=== PATIENT | male | born 1945 | race Caucasian/White ===

== ENCOUNTER 2020-12-10 20:02 | Inpatient (IN) ==
[2020-12-10] MEDS ORDERED: SODIUM CHLORIDE 0.9% 1,000 ML IV STA ×2 (20:36→21:38)
[2020-12-10 20:50] LABS: Basophils # 0.1 10*3/uL (0.0-0.2); Basophils % 0.6 % (0.0-0.8); Eosinophils # 0.1 10*3/uL (0.0-0.87); Eosinophils % 0.4 % (0.00-10.9); Hematocrit 44.9 VOL% (42.0-52.0); Hemoglobin 15.5 GM/DL (14.0-18.0); Immature Granulocytes % 3.9 %; Immature Granulocytes Absolute 0.76 #; Lymphocytes # 0.2 10*3/uL (1.4-4.0); Lymphocytes % 1.2 % (21.2-54.2); Mean Corpuscular HGB Conc 34.5 GM/DL (32-36); Mean Corpuscular Volume 87.7 FL (87-102); Monocytes % 3.6 % (1.7-12.7); Neutrophils % 90.3 % (38.7-73.9); Platelet Count 157 T/CUMM (130-400); Red Blood Count 5.12 MC/CUMM (3.8-5.5); Red Cell Distribution Width 12.1 % (9.3-17.3); White Blood Count 19.3 T/CUMM (4-12)
[2020-12-10] MEDS ORDERED: cefTRIAXone 1,000 MG in SODIUM CHLORIDE 0.9% 100 ML IV STA (21:01)
[2020-12-10 21:02] LABS: Alanine Aminotransferase 18 U/L (16-61); Albumin 1.5 G/DL (3.4-5.0); Alkaline Phosphatase 171 U/L (45-117); Aspartate Amino Transferase 22 U/L (0-37); Blood Urea Nitrogen 52 MG/DL (7-18); Calcium 8.5 MG/DL (8.5-10.1); Estimated Glom Filtration Rate 51 ML/MIN; Glucose 415 MG/DL (74-106); Osmolality,Calculated 295.5 MOS/KG (273-304); Total Protein 6.1 G/DL (6.4-8.3)
[2020-12-10 21:03] LABS: Troponin I 0.117 NG/ML (0.00-0.045)
[2020-12-10 21:05] LABS: Thyroid Stimulating Hormone 0.371 uIU/ml (0.358-3.74)
[2020-12-10 21:13] LABS: INR 1.2; PT Patient Result 12.7 SECS (9.8-11.9); Partial Thromboplastin Time 27.6 SECS (23.9-33.8)
[2020-12-10 21:30] LABS: Band Neutrophils 16 % (0-10); Lymphocytes 1 % (20-55); Segmented Neutrophils 81 % (50-85); Total Cells Counted 100
[2020-12-10 21:31] LABS: Platelet Estimate Adequate
[2020-12-10] MEDS ORDERED: INSULIN REGULAR 100 UNIT/ML IV STA (21:38)
[2020-12-10] MEDS ORDERED: DILTIAZEM 50 MG/10 ML VIAL IV STA (22:58)
[2020-12-10 23:25] LABS: Bacteria,Urine Many /HPF (Few); Bilirubin,Urine Negative (Negative); Blood, Urine Large mg/dL (Negative); Glucose,Urine (UA) >=500 mg/dL (Negative); Hyaline Casts,Urine 3 /LPF (0-3); Ketones,Urine 5 mg/dL (Negative); Mucus,Urine Occasional /LPF (Occasional); Nitrite,Urine Negative (Negative); Protein,Urine Negative; RBC,Urine 10 /HPF (0-4); Squamous Epithelial Cell,Urine Occasional /HPF (0-10); Urine Appearance Slightly Hazy (Clear); Urine Color Yellow (Yellow); Urine Specific Gravity 1.018 (1.001-1.035); Urine Urobilinogen < 2.0 EU/DL (0.2-1.0)
[2020-12-10 23:44] LABS: Barbiturates Screen,Urine Negative (Negative); Benzodiazepines Screen,Urine Negative (Negative); Cannabinoid Screen,Urine Negative (Negative); Opiate Screen,Urine Negative (Negative); Phencyclidine Screen,Urine Negative (Negative)
[2020-12-11] MEDS ORDERED: ONDANSETRON 4 MG/2 ML VIAL IV PRN (02:07)
[2020-12-11] MEDS ORDERED: GLUCAGON 1 MG VIAL IM PRN ×2 (02:07)
[2020-12-11] MEDS ORDERED: DEXTROSE 50% 25 GM/50 ML VIAL IV PRN ×2 (02:07)
[2020-12-11] MEDS ORDERED: ACETAMINOPHEN 325 MG TABLET PO PRN (02:07)
[2020-12-11] MEDS ORDERED: SODIUM CHLORIDE 0.9% 1,000 ML IV SCH (02:30)
[2020-12-11] MEDS: SODIUM CHLORIDE 0.9% 1,000 ML IV SCH ×3 (02:30→22:42)
[2020-12-11] MEDS: PIPERACILLIN/TAZOBACTAM 3,375 MG in SODIUM CHLORIDE 0.9% 100 ML IV SCH ×3 (02:40→17:55)
[2020-12-11] MEDS: dilTIAZem Drip 125 MG/125 ML PREMIX IV SCH ×3 (02:55→22:05)
[2020-12-11] MEDS: INSULIN REGULAR 100 UNIT/ML SUBCUT SCH ×5 (04:22→21:15)
[2020-12-11] MEDS: ENOXAPARIN 80 MG/0.8 ML SYRINGE SUBCUT SCH ×2 (05:55→17:55)
[2020-12-11 07:58] LABS: Basophils # 0.1 10*3/uL (0.0-0.2); Basophils % 0.4 % (0.0-0.8); Eosinophils # 0.1 10*3/uL (0.0-0.87); Eosinophils % 0.4 % (0.00-10.9); Hematocrit 38.5 VOL% (42.0-52.0); Immature Granulocytes % 4.4 %; Lymphocytes # 0.4 10*3/uL (1.4-4.0); Lymphocytes % 1.8 % (21.2-54.2); Mean Corpuscular HGB Conc 35.1 GM/DL (32-36); Mean Corpuscular Volume 86.9 FL (87-102); Mean Platelet Volume 11.8 FL (9.6-12.0); Monocytes % 5.1 % (1.7-12.7); Neutrophils % 87.9 % (38.7-73.9); Red Blood Count 4.43 MC/CUMM (3.8-5.5); Red Cell Distribution Width 12.3 % (9.3-17.3); White Blood Count 22.5 T/CUMM (4-12)
[2020-12-11 07:59] LABS: Hemoglobin 13.5 GM/DL (14.0-18.0); Platelet Count 122 T/CUMM (130-400)
[2020-12-11 08:21] LABS: Band Neutrophils 3 % (0-10); Lymphocytes 1 % (20-55); Segmented Neutrophils 90 % (50-85); Total Cells Counted 100
[2020-12-11 08:25] LABS: Albumin 1.3 G/DL (3.4-5.0); Bilirubin,Total 0.7 MG/DL (0.2-1.0); Calcium 8.3 MG/DL (8.5-10.1); Osmolality,Calculated 295.8 MOS/KG (273-304); Total Protein 5.3 G/DL (6.4-8.3)
[2020-12-11] MEDS: ASPIRIN EC 81 MG TABLET PO SCH (09:25)
[2020-12-11] MEDS: VANCOMYCIN INJ 1,000 MG in SODIUM CHLORIDE 0.9% 250 ML IV SCH ×2 (09:25→21:40)
[2020-12-11] MEDS: METOPROLOL TARTRATE 25 MG TABLET PO SCH ×2 (09:25→21:50)
[2020-12-11] MEDS: PANTOPRAZOLE 40 MG TABLET PO SCH (09:25)
[2020-12-11] MEDS: ASCORBIC ACID 500 MG TABLET PO SCH ×2 (11:10→21:50)
[2020-12-12] MEDS: SODIUM CHLORIDE 0.9% 1,000 ML IV SCH ×3 (02:34→23:24)
[2020-12-12] MEDS: PIPERACILLIN/TAZOBACTAM 3,375 MG in SODIUM CHLORIDE 0.9% 100 ML IV SCH ×2 (02:35→10:43)
[2020-12-12 04:46] LABS: Basophils # 0.1 10*3/uL (0.0-0.2); Basophils % 0.2 % (0.0-0.8); Eosinophils % 0.1 % (0.00-10.9); Hematocrit 35.6 VOL% (42.0-52.0); Hemoglobin 12.1 GM/DL (14.0-18.0); Immature Granulocytes % 1.4 %; Immature Granulocytes Absolute 0.29 #; Lymphocytes % 4.7 % (21.2-54.2); Mean Corpuscular Volume 89.2 FL (87-102); Mean Platelet Volume 12.7 FL (9.6-12.0); Monocytes % 6.8 % (1.7-12.7); Neutrophils % 86.8 % (38.7-73.9); Platelet Count 102 T/CUMM (130-400); Red Blood Count 3.99 MC/CUMM (3.8-5.5); Red Cell Distribution Width 12.7 % (9.3-17.3); White Blood Count 20.2 T/CUMM (4-12)
[2020-12-12 05:09] LABS: Band Neutrophils 1 % (0-10); Hypochromasia 1+; Lymphocytes 5 % (20-55); Microcytosis 1+; Ovalocytes Slight; Platelet Estimate Decreased; Segmented Neutrophils 90 % (50-85); Total Cells Counted 100
[2020-12-12 05:12] LABS: Calcium 8.3 MG/DL (8.5-10.1); Osmolality,Calculated 312.8 MOS/KG (273-304)
[2020-12-12] MEDS: ENOXAPARIN 80 MG/0.8 ML SYRINGE SUBCUT SCH ×2 (06:39→17:40)
[2020-12-12] MEDS: ASPIRIN EC 81 MG TABLET PO SCH (09:17)
[2020-12-12] MEDS: ASCORBIC ACID 500 MG TABLET PO SCH ×2 (09:36→20:46)
[2020-12-12] MEDS: PANTOPRAZOLE 40 MG TABLET PO SCH (09:36)
[2020-12-12] MEDS: VANCOMYCIN INJ 1,000 MG in SODIUM CHLORIDE 0.9% 250 ML IV SCH (09:36)
[2020-12-12] MEDS: METOPROLOL TARTRATE 50 MG TABLET PO SCH ×2 (09:36→20:46)
[2020-12-12] MEDS: INSULIN REGULAR 100 UNIT/ML SUBCUT SCH ×5 (09:36→23:27)
[2020-12-12] MEDS ORDERED: ceFAZolin 2,000 MG in PREMIX 1 EACH IV SCH (12:30)
[2020-12-12] MEDS: ceFAZolin 2,000 MG in PREMIX 1 EACH IV SCH ×2 (14:47→20:51)
[2020-12-12] MEDS: INSULIN GLARGINE 100 UNIT/ML SUBCUT SCH (20:47)
[2020-12-13] MEDS: dilTIAZem Drip 125 MG/125 ML PREMIX IV SCH (05:29)
[2020-12-13] MEDS: ceFAZolin 2,000 MG in PREMIX 1 EACH IV SCH ×3 (06:12→21:53)
[2020-12-13 06:45] LABS: Basophils # 0.1 10*3/uL (0.0-0.2); Basophils % 0.3 % (0.0-0.8); Hematocrit 36.1 VOL% (42.0-52.0); Hemoglobin 12.1 GM/DL (14.0-18.0); Immature Granulocytes % 2.7 %; Immature Granulocytes Absolute 0.47 #; Lymphocytes # 1.1 10*3/uL (1.4-4.0); Lymphocytes % 6.5 % (21.2-54.2); Mean Corpuscular HGB Conc 33.5 GM/DL (32-36); Mean Corpuscular Volume 90.7 FL (87-102); Mean Platelet Volume 13.5 FL (9.6-12.0); Monocytes % 5.2 % (1.7-12.7); Neutrophils % 85.3 % (38.7-73.9); Platelet Count 78 T/CUMM (130-400); Red Blood Count 3.98 MC/CUMM (3.8-5.5); Red Cell Distribution Width 12.9 % (9.3-17.3); White Blood Count 17.5 T/CUMM (4-12)
[2020-12-13] MEDS: ENOXAPARIN 80 MG/0.8 ML SYRINGE SUBCUT SCH (06:46)
[2020-12-13] MEDS: SODIUM CHLORIDE 0.9% 1,000 ML IV SCH ×4 (06:47→19:43)
[2020-12-13 06:59] LABS: Calcium 7.9 MG/DL (8.5-10.1); Osmolality,Calculated 310.7 MOS/KG (273-304)
[2020-12-13 08:35] LABS: Platelet Estimate Adequate; Polychromasia Slight; Segmented Neutrophils 88 % (50-85); Total Cells Counted 100
[2020-12-13] MEDS: INSULIN REGULAR 100 UNIT/ML SUBCUT SCH ×4 (09:12→21:54)
[2020-12-13] MEDS: ASCORBIC ACID 500 MG TABLET PO SCH ×2 (09:12→21:55)
[2020-12-13] MEDS: METOPROLOL TARTRATE 50 MG TABLET PO SCH ×2 (09:12→21:55)
[2020-12-13] MEDS: PANTOPRAZOLE 40 MG TABLET PO SCH (09:12)
[2020-12-13] MEDS: DILTIAZEM 60 MG TABLET PO SCH ×3 (11:35→21:53)
[2020-12-13] MEDS: ASPIRIN EC 81 MG TABLET PO SCH (15:08)
[2020-12-13] MEDS ORDERED: APIXABAN 5 MG TABLET PO SCH (21:00)
[2020-12-13] MEDS: INSULIN GLARGINE 100 UNIT/ML SUBCUT SCH (21:54)
[2020-12-13] MEDS: ATORVASTATIN 40 MG TABLET PO SCH (21:55)
[2020-12-14] MEDS: SODIUM CHLORIDE 0.9% 1,000 ML IV SCH ×3 (00:39→15:14)
[2020-12-14] MEDS: dilTIAZem Drip 125 MG/125 ML PREMIX IV SCH (03:00)
[2020-12-14] MEDS: ceFAZolin 2,000 MG in PREMIX 1 EACH IV SCH ×3 (04:38→21:43)
[2020-12-14 06:40] LABS: Basophils # 0.1 10*3/uL (0.0-0.2); Basophils % 0.3 % (0.0-0.8); Eosinophils % 0.1 % (0.00-10.9); Hematocrit 38.4 VOL% (42.0-52.0); Hemoglobin 12.8 GM/DL (14.0-18.0); Immature Granulocytes % 1.8 %; Lymphocytes # 1.1 10*3/uL (1.4-4.0); Lymphocytes % 6.4 % (21.2-54.2); Mean Corpuscular HGB Conc 33.3 GM/DL (32-36); Mean Corpuscular Volume 90.4 FL (87-102); Mean Platelet Volume 12.9 FL (9.6-12.0); Monocytes % 4.2 % (1.7-12.7); Neutrophils % 87.2 % (38.7-73.9); Platelet Count 73 T/CUMM (130-400); Red Blood Count 4.25 MC/CUMM (3.8-5.5); Red Cell Distribution Width 13.1 % (9.3-17.3); White Blood Count 17.1 T/CUMM (4-12)
[2020-12-14 06:57] LABS: Calcium 7.9 MG/DL (8.5-10.1)
[2020-12-14] MEDS: INSULIN REGULAR 100 UNIT/ML SUBCUT SCH ×4 (08:00→21:45)
[2020-12-14 08:32] LABS: Band Neutrophils 18 % (0-10); Lymphocytes 6 % (20-55); Platelet Estimate Decreased; Segmented Neutrophils 72 % (50-85); Total Cells Counted 100
[2020-12-14 08:33] LABS: Anisocytosis 1+; Macrocytosis 1+
[2020-12-14] MEDS: ASPIRIN EC 81 MG TABLET PO SCH (09:00)
[2020-12-14] MEDS: ASCORBIC ACID 500 MG TABLET PO SCH ×2 (09:10→21:44)
[2020-12-14] MEDS: METOPROLOL TARTRATE 50 MG TABLET PO SCH ×2 (09:10→21:44)
[2020-12-14] MEDS: DILTIAZEM 60 MG TABLET PO SCH ×3 (09:10→21:44)
[2020-12-14] MEDS: PANTOPRAZOLE 40 MG TABLET PO SCH (09:10)
[2020-12-14] MEDS: ATORVASTATIN 40 MG TABLET PO SCH (21:44)
[2020-12-14] MEDS: INSULIN GLARGINE 100 UNIT/ML SUBCUT SCH (21:44)
[2020-12-15] MEDS: dilTIAZem Drip 125 MG/125 ML PREMIX IV SCH (04:27)
[2020-12-15] MEDS: SODIUM CHLORIDE 0.9% 1,000 ML IV SCH ×2 (04:30→05:35)
[2020-12-15] MEDS: ceFAZolin 2,000 MG in PREMIX 1 EACH IV SCH ×3 (04:30→20:59)
[2020-12-15 06:28] LABS: Basophils % 0.2 % (0.0-0.8); Hematocrit 38.9 VOL% (42.0-52.0); Hemoglobin 12.9 GM/DL (14.0-18.0); Immature Granulocytes % 1.7 %; Immature Granulocytes Absolute 0.35 #; Lymphocytes % 4.9 % (21.2-54.2); Mean Corpuscular HGB Conc 33.2 GM/DL (32-36); Mean Corpuscular Volume 90.9 FL (87-102); Mean Platelet Volume 12.2 FL (9.6-12.0); Monocytes % 3.6 % (1.7-12.7); Neutrophils % 89.6 % (38.7-73.9); Platelet Count 98 T/CUMM (130-400); Red Blood Count 4.28 MC/CUMM (3.8-5.5); Red Cell Distribution Width 13.4 % (9.3-17.3); White Blood Count 20.2 T/CUMM (4-12)
[2020-12-15 06:56] LABS: Calcium 7.7 MG/DL (8.5-10.1); Osmolality,Calculated 301.4 MOS/KG (273-304)
[2020-12-15 07:26] LABS: Anisocytosis 1+; Band Neutrophils 23 % (0-10); Lymphocytes 3 % (20-55); Macrocytosis 1+; Metamyelocytes 1 %; Platelet Estimate Decreased; Segmented Neutrophils 70 % (50-85); Total Cells Counted 100
[2020-12-15] MEDS: INSULIN REGULAR 100 UNIT/ML SUBCUT SCH ×4 (08:00→21:07)
[2020-12-15] MEDS: ASCORBIC ACID 500 MG TABLET PO SCH ×2 (08:56→21:05)
[2020-12-15] MEDS: PANTOPRAZOLE 40 MG TABLET PO SCH (08:56)
[2020-12-15] MEDS: METOPROLOL TARTRATE 50 MG TABLET PO SCH ×2 (08:56→21:07)
[2020-12-15] MEDS: DILTIAZEM 60 MG TABLET PO SCH ×3 (08:56→21:05)
[2020-12-15] MEDS: ASPIRIN EC 81 MG TABLET PO SCH (08:56)
[2020-12-15] MEDS: ATORVASTATIN 40 MG TABLET PO SCH (21:05)
[2020-12-15] MEDS: INSULIN GLARGINE 100 UNIT/ML SUBCUT SCH (21:06)
[2020-12-16] MEDS: SODIUM CHLORIDE 0.9% 1,000 ML IV SCH ×3 (01:09→01:25)
[2020-12-16] MEDS: dilTIAZem Drip 125 MG/125 ML PREMIX IV SCH (03:34)
[2020-12-16] MEDS: ceFAZolin 2,000 MG in PREMIX 1 EACH IV SCH ×3 (04:15→21:44)
[2020-12-16 06:26] LABS: Basophils # 0.1 10*3/uL (0.0-0.2); Basophils % 0.3 % (0.0-0.8); Eosinophils # 0.1 10*3/uL (0.0-0.87); Eosinophils % 0.2 % (0.00-10.9); Hematocrit 39.6 VOL% (42.0-52.0); Hemoglobin 12.7 GM/DL (14.0-18.0); Immature Granulocytes % 2.3 %; Lymphocytes # 0.8 10*3/uL (1.4-4.0); Lymphocytes % 3.9 % (21.2-54.2); Mean Corpuscular HGB Conc 32.1 GM/DL (32-36); Mean Corpuscular Volume 94.1 FL (87-102); Mean Platelet Volume 12.4 FL (9.6-12.0); Monocytes % 3.1 % (1.7-12.7); Neutrophils % 90.2 % (38.7-73.9); Platelet Count 103 T/CUMM (130-400); Red Blood Count 4.21 MC/CUMM (3.8-5.5); Red Cell Distribution Width 13.2 % (9.3-17.3); White Blood Count 21.3 T/CUMM (4-12)
[2020-12-16 06:44] LABS: Calcium 7.6 MG/DL (8.5-10.1); Osmolality,Calculated 299.1 MOS/KG (273-304)
[2020-12-16 07:01] LABS: Band Neutrophils 1 % (0-10); Hypochromasia 1+; Lymphocytes 1 % (20-55); Microcytosis 1+; Platelet Estimate Decreased; Segmented Neutrophils 95 % (50-85); Total Cells Counted 100
[2020-12-16] MEDS: INSULIN REGULAR 100 UNIT/ML SUBCUT SCH ×4 (08:31→21:46)
[2020-12-16] MEDS: ASPIRIN EC 81 MG TABLET PO SCH (08:42)
[2020-12-16] MEDS: PANTOPRAZOLE 40 MG TABLET PO SCH (08:42)
[2020-12-16] MEDS: ASCORBIC ACID 500 MG TABLET PO SCH ×2 (08:42→21:44)
[2020-12-16] MEDS: METOPROLOL TARTRATE 50 MG TABLET PO SCH ×2 (08:42→21:44)
[2020-12-16] MEDS: DILTIAZEM CD 180 MG CAPSULE PO SCH (08:42)
[2020-12-16] MEDS ORDERED: ALBUMIN 25% 25 GM in PREMIX 1 EACH IV ONE (14:00)
[2020-12-16] MEDS: ATORVASTATIN 40 MG TABLET PO SCH (21:44)
[2020-12-16] MEDS: APIXABAN 2.5 MG TABLET PO SCH (21:44)
[2020-12-16] MEDS: INSULIN GLARGINE 100 UNIT/ML SUBCUT SCH (21:45)
[2020-12-17] MEDS: SODIUM CHLORIDE 0.9% 1,000 ML IV SCH ×3 (04:03→13:31)
[2020-12-17] MEDS: ceFAZolin 2,000 MG in PREMIX 1 EACH IV SCH ×3 (04:19→20:50)
[2020-12-17 05:43] LABS: Basophils % 0.2 % (0.0-0.8); Eosinophils # 0.1 10*3/uL (0.0-0.87); Eosinophils % 0.2 % (0.00-10.9); Hemoglobin 11.7 GM/DL (14.0-18.0); Immature Granulocytes % 2.3 %; Immature Granulocytes Absolute 0.58 #; Lymphocytes # 0.8 10*3/uL (1.4-4.0); Lymphocytes % 3.2 % (21.2-54.2); Mean Corpuscular HGB Conc 34.4 GM/DL (32-36); Mean Corpuscular Volume 88.1 FL (87-102); Mean Platelet Volume 11.6 FL (9.6-12.0); Neutrophils % 91.1 % (38.7-73.9); Platelet Count 151 T/CUMM (130-400); Red Blood Count 3.86 MC/CUMM (3.8-5.5); Red Cell Distribution Width 13.2 % (9.3-17.3); White Blood Count 25.2 T/CUMM (4-12)
[2020-12-17 06:09] LABS: Lymphocytes 3 % (20-55); Platelet Estimate Adequate; Segmented Neutrophils 96 % (50-85); Total Cells Counted 100
[2020-12-17 06:10] LABS: Microcytosis Slight
[2020-12-17 06:12] LABS: Calcium 7.5 MG/DL (8.5-10.1); Osmolality,Calculated 294.4 MOS/KG (273-304)
[2020-12-17] MEDS: INSULIN REGULAR 100 UNIT/ML SUBCUT SCH ×4 (07:34→20:52)
[2020-12-17] MEDS: ASPIRIN EC 81 MG TABLET PO SCH (08:26)
[2020-12-17] MEDS: DILTIAZEM CD 180 MG CAPSULE PO SCH (08:26)
[2020-12-17] MEDS: APIXABAN 2.5 MG TABLET PO SCH ×2 (08:26→20:51)
[2020-12-17] MEDS: ASCORBIC ACID 500 MG TABLET PO SCH ×2 (08:26→20:51)
[2020-12-17] MEDS: METOPROLOL TARTRATE 50 MG TABLET PO SCH (08:27)
[2020-12-17] MEDS: PANTOPRAZOLE 40 MG TABLET PO SCH (08:27)
[2020-12-17] MEDS ORDERED: METOPROLOL TARTRATE 25 MG TABLET PO ONE (10:34)
[2020-12-17] MEDS ORDERED: POTASSIUM CHLORIDE 20 MEQ TABLET PO ONE (12:08)
[2020-12-17] MEDS: INSULIN GLARGINE 100 UNIT/ML SUBCUT SCH (20:52)
[2020-12-17] MEDS: ATORVASTATIN 40 MG TABLET PO SCH (20:52)
[2020-12-17] MEDS: METOPROLOL TARTRATE 100 MG TABLET PO SCH (21:33)
[2020-12-18] MEDS: SODIUM CHLORIDE 0.9% 1,000 ML IV SCH ×2 (01:30→09:18)
[2020-12-18] MEDS: ceFAZolin 2,000 MG in PREMIX 1 EACH IV SCH (04:05)
[2020-12-18 05:53] LABS: Basophils % 0.2 % (0.0-0.8); Eosinophils % 0.1 % (0.00-10.9); Hematocrit 36.3 VOL% (42.0-52.0); Hemoglobin 11.9 GM/DL (14.0-18.0); Immature Granulocytes % 2.4 %; Immature Granulocytes Absolute 0.64 #; Lymphocytes # 0.9 10*3/uL (1.4-4.0); Lymphocytes % 3.2 % (21.2-54.2); Mean Corpuscular HGB Conc 32.8 GM/DL (32-36); Mean Platelet Volume 11.1 FL (9.6-12.0); Monocytes % 2.8 % (1.7-12.7); Neutrophils % 91.3 % (38.7-73.9); Platelet Count 205 T/CUMM (130-400); Red Blood Count 3.99 MC/CUMM (3.8-5.5); White Blood Count 26.6 T/CUMM (4-12)
[2020-12-18 06:07] LABS: Calcium 7.7 MG/DL (8.5-10.1); Osmolality,Calculated 298.1 MOS/KG (273-304)
[2020-12-18 06:15] LABS: Hypochromasia Slight; Lymphocytes 1 % (20-55); Microcytosis Slight; Platelet Estimate Adequate; Segmented Neutrophils 98 % (50-85); Total Cells Counted 100
[2020-12-18] MEDS: INSULIN REGULAR 100 UNIT/ML SUBCUT SCH ×3 (09:18→16:21)
[2020-12-18] MEDS: METOPROLOL TARTRATE 100 MG TABLET PO SCH (09:37)
[2020-12-18] MEDS: ASPIRIN EC 81 MG TABLET PO SCH (09:37)
[2020-12-18] MEDS: PANTOPRAZOLE 40 MG TABLET PO SCH (09:37)
[2020-12-18] MEDS: APIXABAN 2.5 MG TABLET PO SCH (09:37)
[2020-12-18] MEDS: ASCORBIC ACID 500 MG TABLET PO SCH (09:37)
[2020-12-18] MEDS: DILTIAZEM CD 180 MG CAPSULE PO SCH (09:38)
[2020-12-18] MEDS ORDERED: FUROSEMIDE 40 MG/4 ML VIAL IV ONE (11:04)
[2020-12-18] MEDS ORDERED: ALBUTEROL/IPRATROPIUM 3 ML NEB RESP TX PRN (11:05)
[2020-12-18] MEDS ORDERED: ALBUTEROL/IPRATROPIUM 3 ML NEB RESP TX ONE (11:06)
[2020-12-18] MEDS ORDERED: NAFCILLIN 2,000 MG in SODIUM CHLORIDE 0.9% 100 ML IV SCH (12:30)
[2020-12-18 16:05] VITALS: BP 146/92
[2020-12-18] MEDS ORDERED: DILTIAZEM CD 120 MG CAPSULE PO SCH (21:00)
[2020-12-18] MEDS ORDERED: SODIUM BICARBONATE 650 MG TABLET PO SCH (21:00)
== END 2020-12-18 16:44 | DRG 871 ==
LOC: N.ED 20:02 → SUATTDRO 12-11 02:07 → N.EDINP 12-11 02:07 → N.TELES 12-11 04:35
PROVIDERS: ADMIT Emergency Medicine; ATTEND Internal Medicine